=== PATIENT | female | born 1940 | race Caucasian/White ===

== ENCOUNTER 2017-04-06 05:51 | Observation (INO) | payer MEDICARE, MEDICAID ==
[2017-04-06] MEDS ORDERED: Nitroglycerin 0.4 MG Tab.SL SL ONE (06:48)
[2017-04-06] MEDS ORDERED: Nitroglycerin 0.4 MG Tab.SL SL PRN (06:53)
[2017-04-06] MEDS ORDERED: Morphine 2 MG/ML Syringe IVPUSH PRN (06:53)
--- NOTE | 2017-04-06 07:43 | PCM.HP ---
H&P History of Present Illness - General Date of Service: 04/06/17 Admit Problem/Dx: Admission Diagnosis/Problem Admission Diagnosis/Problem Chest pain Source of Information: Patient, Old Records History Limitations: Reports: No Limitations - History of Present Illness Initial Comments - Free Text/Narative: 76-year-old female who presented to the ER with chest pain. Just been started about 4 AM moderate to severe, but it's the neck into the arm on the left. No associated nausea vomiting or shortness of breath. This pain was promptly relieved by nitroglycerin upon arrival in the emergency room. She has a history of coronary artery disease and a bypass graft x 3 in 1999. In the ER I initial systolic blood pressure was 180. This improved significantly with her pain improved as well. Onset of Symptoms: Reports: Today, Sudden Duration of Symptoms: Reports: Intermittent Location: Reports: Chest Quality: Reports: Ache Improves with: Reports: None Chest Pain Score (Numeric/FACES): 6 - Related Data Allergies/Adverse Reactions: Allergies Allergy/AdvReac Type Severity Reaction Status Date / Time meperidine [From Demerol] Allergy Vomiting Verified 04/06/17 07:31 oxycodone HCl Allergy Vomiting Verified 04/06/17 07:31 [From OxyContin] Home Medications: Home Meds Metoprolol Tartrate [Lopressor] 25 mg PO DAILY 02/07/14 [History] atorvaSTATin [Lipitor] 20 mg PO DAILY 02/07/14 [History] Past Medical History Cardiovascular History: Reports: Bypass, [place], Other (See Below) Other Cardiovascular History: takes metoprolol due to cardiac surgical hx [employer] History: Reports: - Past Surgical History Cardiovascular Surgical History: Reports: Coronary Artery Bypass Social & Family History - Tobacco Use Smoking Status *Q: Former Smoker Used Tobacco, but Quit: Yes Month Tobacco Last Used: 06/1994 Second Hand Smoke Exposure: No - Caffeine Use Caffeine Use: Reports: Coffee - Alcohol Use Days Per Week of Alcohol Use: 0 - Recreational Drug Use Recreational Drug Use: No H&P Review of Systems - Review of Systems: Review Of Systems: ROS reveals no pertinent complaints other than HPI. Exam - Exam Exam: See Below - Vital Signs Vital Signs: Last Vital Signs Temp 97.5 F 04/06/17 06:00 Pulse 89 04/06/17 06:00 Resp 18 04/06/17 06:00 BP 188/90 H 04/06/17 06:00 Pulse Ox 95 04/06/17 06:00 Weight: 64.41 kg - Exam General: Alert, Oriented, 4 HEENT: PERRLA, Hearing Intact, Mucosa Moist & [place], Nares Patent, Normal Nasal Septum, Posterior Pharynx Clear, Conjunctiva Clear, EOMI, EACs Clear, TMs Clear Neck: Supple, Trachea Midline, 2 Lungs: Clear to Auscultation, Normal Respiratory Effort Cardiovascular: Regular Rate, Regular Rhythm GI/Abdominal Exam: Normal Bowel Sounds, Soft, Non-Tender, No Organomegaly, No Distention, No Abnormal Bruit, No Mass, Pelvis Stable (Female) Exam: Deferred Rectal (Female) Exam: Deferred Back Exam: Normal Inspection, Full Range of Motion, NT Extremities: Normal Inspection, Normal Range of Motion, Non-Tender, No Pedal Edema, Normal Capillary Refill Skin: Warm, Dry, Intact Neurological: Cranial Nerves Intact, Reflexes Equal Bilateral Neuro Extensive - Mental Status: Alert, Oriented x3, Normal Mood/Affect, Normal Cognition Neuro Extensive - Motor, Sensory, Reflexes: CN II-XII Intact, Normal Gait, Normal Reflexes Psychiatric: Alert, Normal Affect, Normal Mood - Patient Data Result Diagrams: 04/06/17 06:15 04/06/17 06:15 Imaging Impressions Last 24 hrs: CXR neg EKG INTERPRETATION Rhythm: NSR Comparison: Change From Previous EKG *Q Meaningful Use (ADM) - VTE *Q VTE Criteria *Q: - Stroke *Q Stroke Criteria *Q: - AMI *Q AMI Criteria *Q: - Problem List (1) Chest pain SNOMED Code(s): 73489791 ICD Code: R07.9 - CHEST PAIN, UNSPECIFIED Status: Acute Current Visit: Yes Qualifiers: Chest pain type: unspecified Qualified Code(s): R07.9 - Chest pain, unspecified (2) HTN (hypertension) SNOMED Code(s): 37833722 ICD Code: I10 - ESSENTIAL (PRIMARY) HYPERTENSION Status: Acute Current Visit: Yes Qualifiers: Hypertension type: essential hypertension Qualified Code(s): I10 - Essential (primary) hypertension (3) CAD (coronary artery disease) SNOMED Code(s): 28978903 ICD Code: I25.10 - ATHSCL HEART DISEASE OF [place] CORONARY ARTERY W/O ANG PCTRS Status: Acute Current Visit: Yes Qualifiers: Coronary Disease-Associated Artery/Lesion type: bypass graft (4) HLD (hyperlipidemia) SNOMED Code(s): 86934102 ICD Code: E78.5 - HYPERLIPIDEMIA, UNSPECIFIED Status: Acute Current Visit : Yes Qualifiers: Hyperlipidemia type: pure hypercholesterolemia Qualified Code(s): E78.00 - Pure hypercholesterolemia, unspecified; E78.0 - Pure hypercholesterolemia Problem List Initiated/Reviewed/Updated: Yes Orders Last 24hrs: Active Orders 24 hr Category Date Time Status Patient Status Manage Transfer [TRANSFER] Routine ADT 04/06/17 06:57 Active Medication Orders Morphine Sulfate (Morphine) 2 mg IVPUSH Q2H PRN PRN Reason: Pain (severe 7-10) Nitroglycerin (Nitrostat) 0.4 mg SL Q5M PRN PRN Reason: Chest Pain Assessment/Plan Comment:: Admit the patient to the ICU to rule out myocardial ischemia. Basic ST depressions in lead 1 and 2 and also T-wave inversions in aVL as compared to an EKG in '14. We'll give nitroglycerin when necessary she is ready, aspirin 325 mg and will monitor on telemetry throughout her stay. We'll resume home medications.
--- NOTE | 2017-04-06 09:37 | ER ---
DATE SEEN: 04/06/2017 CHIEF COMPLAINT: Chest pain. HISTORY OF PRESENT ILLNESS: This is a 76-year-old female who came in with chest pain, moderate in intensity, radiated to the neck and arm with a history of CABG in 1999. REVIEW OF SYSTEMS: No shortness of breath, fever, or chills. PAST MEDICAL HISTORY: Hypertension and hyperlipidemia. MEDICATIONS: Reviewed. PHYSICAL EXAMINATION: GENERAL: Not in distress. VITAL SIGNS: Afebrile. Blood pressure initially was 188/90. ENT: Negative. CHEST: Clear. MENTAL STATUS: Alert. SKIN: No pallor or jaundice. LABORATORY DATA: Negative troponin, CBC, CMP. Chest x-ray negative. EKG shows some ST depressions in lead I and T-wave inversions in aVL. IMPRESSION: Atypical chest pain, possibly an ST elevation myocardial infarction. PLAN: Plan is to admit the patient for further treatment, observation in ICU, rule out [place]. Please see the H and P for details. /[id number] CODY/ANA
[2017-04-06] MEDS ORDERED: Heparin Sodium 5,000 Units/ML Vial IVPUSH ONE (14:32)
[2017-04-06] MEDS ORDERED: Clopidogrel 75 MG Tab PO ONE (14:40)
[2017-04-06] MEDS ORDERED: Heparin Sodium/D5W 25,000 UNITS/500 ML BAG IV SCH (14:45)
[2017-04-06 16:02] VITALS: BP 123/98
--- NOTE | 2017-04-06 17:49 | DISCH ---
DISCHARGE DATE: 04/06/2017 REASON FOR ADMISSION: Chest pain. REASON FOR TRANSFER: Non-ST elevation OR. HISTORY OF PRESENT ILLNESS: A 76-year-old female who came in chest pain, admitted with a negative troponin, but ST depressions were new. She was pain- free on admission, but did experience some pressure in the neck and dizziness, and a troponin done there showed an increase significant. I called [place] and transferred the patient to [facility] with consultation to Cardiology. Prior to transfer, we gave 300 mg of oral Plavix and 5000 units of heparin and a heparin drip was initiated. She was transferred by [facility] ambulance in a satisfactory condition. I spent more than 35 minutes to transfer the patient. /[id number] CODY/ANA
--- NOTE | 2017-04-08 13:58 | CR ---
INDICATION: Chest pain. CHEST: A single AP upright view of the chest 04/06/2017 was compared with 04/13, and revealed evidence of previous median sternotomy. The aorta is tortuous with calcification in the arch, also as previously. The heart remains normal in size and shape. An active infiltrate or effusion was not identified. A small area of increased density in the right lateral lung field is unchanged, likely representing a scar, possibly granulomatous. It was present on the 2012 examination and appears unchanged. Overlying EKG leads are noted. IMPRESSION: No acute process. MTDD
--- NOTE | 2017-08-29 11:23 | LETTER ---
August 28, 2017 Srikanth Wayne MD RE: Patient #[id number] - date of ER visit 04/06/2017. Dear Dr. Wayne: Committee reviews of medical records have been completed on the patient from the date 04/06/2017. Findings include a deviation from standard of care in such that aspirin was not given to the patient in the emergency room. This letter is informational and a reminder to complete checklist items for suspected cardiac chest pain. Thank you for your attention to detail. Sincerely, [employer] [facility]/ICU/ER Services Committee
== END 2017-04-06 16:10 ==
LOC: FB.ED 05:51 → FB.ICU 06:53
PROVIDERS: ADMIT Family Medicine; ATTEND Family Medicine
DX: I21.4 Non-ST elevation (NSTEMI) myocardial infarction (principal); I25.10 Atherosclerotic heart disease of native coronary artery without angina pectoris; I10 Essential (primary) hypertension; E78.5 Hyperlipidemia, unspecified; Z95.1 Presence of aortocoronary bypass graft; Z88.5 Allergy status to narcotic agent; Z79.899 Other long term (current) drug therapy; Z87.891 Personal history of nicotine dependence
CPT/HCPCS: 36415; 71010; 80053; 83880; 84484; 85025; 85610; 85730; 93005; 96374; 99285; A9270; G0378; J1644; 99236; 99283